=== PATIENT | female | born 1990 | race Caucasian/White ===

== ENCOUNTER 2016-11-26 17:48 | Emergency (ER) | payer OTHER ==
--- NOTE | ~2016-11-26 | CR72 ---
[facility] A Service of [facility] RADIOLOGY TEXT RESULTS PATIENT: WALDO MATHIAS LOCATION: SED : 88 UNIT #: [id number] AGE: [address]: Adelaida Taylor APRN SEX: F ORDER DR: [id number] [place] [id number] E MR#: [id number] Acc #: [id number] NAME: WALDO MATHIAS : 1990 SEX: F STUDY DATE/TIME: 11/26/2016 18:15 UNIT: SED ROOM: STUDY DESCRIPTION: CR Chest Single View Portable Attending Physician: Adelaida Taylor A.P.R.N. Ordering Physician: Adelaida Taylor A.P.R.N. MEDICAL IMAGING REPORT This report is preliminary unless electronic signature is present. EXAM Portable chest HISTORY Epigastric pain and nausea since 3:00 a.m. Nonsmoker. COMMENT Single frontal portable view of the chest timed 1814 on 11/26/2016 is reviewed. No prior. FINDINGS Heart size is normal. There may be a small amount of airspace disease at the left base. The patient is scheduled to undergo an abdomen and pelvis CT subsequently and please refer to that study to see if it is reproducible at the lung bases on the CT scan. The lungs are otherwise clear. There is no congestive failure, pleural effusion, or pneumothorax. IMPRESSION Possible small infiltrate left base. Please refer to the upcoming CT abdomen and pelvis results where the left base would be better seen. Dictated by... Ronda Johnson M.D. THIS IS AN ELECTRONICALLY VERIFIED REPORT Ronda Johnson M.D. at 11/27/2016 3:09 PM RICO/pineda TD: 11/27/2016 14:28 JOB #: [id number] [facility] A Service of [facility] RADIOLOGY TEXT RESULTS PATIENT: WALDO MATHIAS LOCATION: SED : 89 UNIT #: [id number] AGE: [address]: Adelaida Taylor APRN SEX: F ORDER DR: MEDICAL IMAGING REPORT Page 1 of 1
--- NOTE | ~2016-11-26 | CT2 ---
[facility] A Service of [facility] RADIOLOGY TEXT RESULTS PATIENT: WALDO MATHIAS LOCATION: SED : 89 UNIT #: [id number] AGE: [address]: Adelaida Taylor APRN SEX: F ORDER DR: [id number] [place] [id number] E MR#: [id number] Acc #: [id number] NAME: WALDO MATHIAS : 1990 SEX: F STUDY DATE/TIME: 11/26/2016 19:24 UNIT: SED ROOM: STUDY DESCRIPTION: CT Abd and Pelv W Cont Attending Physician: Adelaida Taylor A.P.R.N. Ordering Physician: Adelaida Taylor A.P.R.N. MEDICAL IMAGING REPORT This report is preliminary unless electronic signature is present. EXAM CT abdomen and pelvis, 11/26/2016. HISTORY Pain. Chest pain onset 0300 hours radiating into the abdomen, elevated white blood cell count, at 15.2 at 0802, 11/26/2016. TECHNIQUE CT abdomen and pelvis performed with intravenous administration of 100 mL Isovue-370. Enteric contrast also administered. This CT exam was performed with one or more of the following radiation dose reduction techniques: automatic exposure control, adjustment of mA and/or kV according to patient size, and iterative reconstruction. COMPARISON STUDIES No comparisons. FINDINGS Lung bases clear. Inferior heart and pericardium unremarkable. Liver unremarkable. The gallbladder is mildly distended. It measures about 4.2 cm in transverse diameter. Gallstones are present. There is evidence of disproportionate gallbladder wall thickening relative to volume with gallbladder wall measuring about 3.9 mm. There appears to be a trace amount of pericholecystic fluid. There is some haziness and stranding in the immediate pericholecystic fat. Constellation of findings most consistent with acute cholecystitis. No choledocholithiasis and no biliary ductal dilatation. Spleen, pancreas, adrenal glands, kidneys unremarkable. CT PELVIS: No inguinal adenopathy. Urinary bladder unremarkable. Slightly heterogeneous appearance of the uterus with a probable fundal fibroid measuring about 12 mm in diameter. Crenelated, rim-enhancing STS. [facility] A Service of [facility] & [facility] RADIOLOGY TEXT RESULTS PATIENT: WALDO MATHIAS LOCATION: SED : [birth year] UNIT #: [id number] AGE: [address]: Adelaida Taylor [employer] SEX: F ORDER DR: structure in the right ovary measuring 2.1 cm in diameter most consistent with collapsing dominant follicle for this menstrual cycle. No clearly suspicious adnexal findings. No fluid collections in the pelvis. No pelvic or retroperitoneal adenopathy. Distal esophagus contains a small contrast material which may reflect gastroesophageal reflux. Moderate gastric distension with contrast material and food debris. No obstructing process is seen. This is likely physiologic in nature. The small bowel and appendix are normal. Colon unremarkable. No acute-appearing bony abnormality. Minimal retrolisthesis L5 on S1 by about 3 mm. Probably degenerative in nature. Moderate narrowing L5-S1 intervertebral disc space. Vacuum disc phenomena. Small posterior disc bulge L4-L5. IMPRESSION 1. Findings suggest acute cholecystitis. There is mild gallbladder distension. Multiple gallstones are present. Trace pericholecystic fluid. Disproportionate gallbladder wall thickening relative to volume and mild pericholecystic inflammatory change. Please correlate with the patient's clinical presentation and laboratory data. If further imaging assessment of the gallbladder is felt warranted ultrasound could be pursued. 2. The kidneys, ureters, and urinary bladder are unremarkable. 3. Uterus shows a 12 mm fundal fibroid. 4. Collapsing ovarian cyst right ovary measuring up to about 2.1 cm in diameter. There are no suspicious adnexal findings. 5. Appendix normal. 6. Mild gastric distension with contrast material and food debris, likely physiologic in nature and related to ingestion of oral contrast bolus. 7. Small amount of contrast in the esophagus, likely reflecting gastroesophageal reflux. 8. Degenerative changes lower lumbar spine. See above. When clinically appropriate for the patient, if warranted, lumbar spine could be further evaluated with elective MRI or CT. Dictated by... Givoany Alanis M.D. THIS IS AN ELECTRONICALLY VERIFIED REPORT Giovany Alanis M.D. at 11/29/2016 6:09 PM JERED/prince TD: 11/27/2016 15:03 JOB #: [id number] MEDICAL IMAGING REPORT Page 1 of 1
--- NOTE | ~2016-11-26 | EKG ---
PATIENT: WALDO MATHIAS UNIT #: [id number] Ventricular Rate: 83 BPM Atrial Rate: 83 BPM P-R Interval: 128 ms QRS Duration: 78 ms Q-T Interval: 364 ms QTC Calculation(Bezet): 427 ms P Whiting: 61 degrees Calculated R Whiting: 60 degrees Calculated T Whiting: 28 degrees Diagnosis Line: Normal sinus rhythm Diagnosis Line: Normal ECG Diagnosis Line: Diagnosis Line: Confirmed by CAITIE CASTELLON MD ([id number]) on 12/07/2016 Diagnosis Line: 7:56:38 PM INTERPRETING MD: CANDE HERRERA
[2016-11-26 18:00] LABS: BASOPHIL% 0.2 % (0-2.5); EOSINOPHIL# 0.1 X10e3 (0-0.7); HEMATOCRIT 41.7 % (35.0-45.0); HEMOGLOBIN 14.2 gm/dL (12.0-16.0); LYMPHOCYTE# 1.4 X10e3 (1.0-3.5); LYMPHOCYTE% 9.2 % (17.0-45.0); MEAN CORPUSCULAR HEMOGLOBIN 29.3 PG (28-34); MEAN CORPUSCULAR HGB CONC 34.1 g/dL (30-36); MEAN PLATELET VOLUME 8.1 FL (6.5-11.5); MONOCYTE% 6.8 % (3.0-12.0); NEUTROPHIL# 12.6 X10e3 (1.5-7.1); NEUTROPHIL% 82.8 % (40-75); PLATELET COUNT 242 X10e3 (140-420); RED BLOOD COUNT 4.85 X10e (3.90-5.30); WHITE BLOOD COUNT 15.2 X10e3 (4.0-10.5)
[2016-11-26 18:02] LABS: DIFF IND NO
[2016-11-26 18:12] LABS: POC - CKMB <1.0 ng/mL (0.0-7.9); POC - MYOGLOBIN 40.3 ng/mL (0.0-169.0); POC - TROPONIN <0.05 ng/mL (<=0.05)
[2016-11-26 18:16] LABS: ALBUMIN SERUM 4.4 g/dL (3.5-5.0); BILIRUBIN, DIRECT 0.1 mg/dL (0.0-0.2); BILIRUBIN,INDIRECT 0.8 mg/dL (0.0-0.9); BILIRUBIN,TOTAL 0.9 mg/dL (0.2-2.0); BUN/CREATININE RATIO 22.85; CALCIUM SERUM 9.3 mg/dL (8.4-10.2); CREATININE SERUM 0.7 mg/dL (0.6-1.4); GLOM FILT RATE Estimated 118.7 mL/min (>60); POTASSIUM 3.6 mmol/L (3.5-5.1); PROTEIN TOTAL SERUM 4.9 g/dL (6.0-8.3)
[2016-11-26 19:54] LABS: POC - CKMB <1.0 ng/mL (0.0-7.9); POC - MYOGLOBIN 24.9 ng/mL (0.0-169.0); POC - TROPONIN <0.05 ng/mL (<=0.05)
[2016-11-26 21:43] LABS: URINE SOURCE CLEAN CATCH
[2016-11-26 21:45] LABS: URINE APPEARANCE CLEAR; URINE BILIRUBIN NEG (NEG); URINE BLOOD 1+ (NEG); URINE COLOR YELLOW; URINE GLUCOSE NEG (NORM); URINE KETONE NEG (NEG); URINE LEUKOCYTE ESTERASE NEG (NEG); URINE NITRATE NEG (NEG); URINE PH 5.5 (5-8); URINE PROTEIN NEG (NEG); URINE UROBILINOGEN 0.2 MG/DL (NORM)
[2016-11-26 21:46] LABS: MICRO INDICATED? YES
[2016-11-26 21:53] LABS: CULTURE INDICATED? NO; URINE BACTERIA NEG (NEG)
== END 2016-11-26 22:40 ==
LOC: SED 17:48
PROVIDERS: Nurse Practitioner
DX: K80.00 Calculus of gallbladder with acute cholecystitis without obstruction (principal)
CPT/HCPCS: 36415; 71010; 74177; 80048; 80076; 81003; 82553; 83690; 83874; 84484; 84703; 85025; 86677; 93005; 96374; 96375; 99285; C9113; J0295; J2270; J2405; J2550; Q9967